=== PATIENT | female | born 1980 | race Caucasian/White ===

== ENCOUNTER → 2017-11-11 15:13 | Outpatient (REF) | payer MEDICAID, SELFPAY ==
[2017-11-11 19:04] LABS: Basophils # 0.1 K/mm3 (0-0.2); Basophils % 0.5 % (0.1-2.0); Eosinophils # 0.1 K/mm3 (0.0-0.4); Eosinophils % 0.7 % (0.1-12.0); Hematocrit 45.8 % (37.0-47.0); Lymphocytes # 2.6 K/mm3 (0.7-4.5); Lymphocytes % 28.5 K/mm3 (10-50); Mean Corpuscular HGB Conc 32.6 g/dL (31.8-35.4); Mean Corpuscular Hemoglobin 31.3 pg (27.0-31.2); Mean Corpuscular Volume 95.8 fl (81-99); Mean Platelet Volume 8.7 fl (7.4-10.4); Monocytes # 0.3 K/mm3 (0.1-1.0); Monocytes % 3.3 % (1.7-9.3); Neutrophils # 6.1 K/mm3 (1.8-7.8); Neutrophils % 66.9 % (37.0-80.0); Platelet Count 223 K/mm3 (142-424); Red Blood Count 4.79 M/mm3 (4.20-5.40); Red Cell Distribution Width 13.1 % (11.5-17.5); White Blood Count 9.1 K/mm3 (4.8-10.8)
[2017-11-11 19:58] LABS: Erythrocyte Sedimentation Rate 13 mm/hr (0-20)
[2017-11-11 20:11] LABS: Alanine Aminotransferase 26 U/L (12-78); Albumin Level 3.8 gm/dL (3.4-5.0); Albumin/Globulin Ratio 1.1 (1.1-1.8); Alkaline Phosphatase 104 U/L (46-116); Anion Gap 15.6 mEq/L (5-15); Aspartate Amino Transferase 16 U/L (15-37); Bilirubin,Total 0.5 mg/dL (0.2-1.0); C-Reactive Protein 0.4 mg/L (0.0-0.9); Calcium 8.7 mg/dL (8.5-10.1); Carbon Dioxide 27 mmol/L (21.0-32.0); Chloride 103 mmol/L (98-107); Creatinine,Serum 0.82 mg/dL (0.55-1.02); Estimated Glomerular Filt Rate 78 ml/min (>60); GFR (African American) 95 ML/MIN (>60); Globulin 3.4 gm/dl (1.3-3.2); Glucose 96 mg/dL (74-106); Potassium 3.6 mmoL/L (3.5-5.1); Sodium 142 mmol/L (136-145); Total Protein,Serum 7.2 gm/dL (6.4-8.2); Uric Acid 3.8 mg/dL (2.6-7.2)
[2017-11-11 20:40] LABS: Blood Urea Nitrogen 8 mg/dL (7-18)
== END ==
LOC: LAB 15:13
PROVIDERS: Visit Provider Physician Assistant
DX: M79.674 Pain in right toe(s) (principal)
CPT/HCPCS: 80053; 84550; 85025; 85651; 86140

== ENCOUNTER → 2017-12-01 09:20 | Outpatient (CLI) | payer MEDICAID, SELFPAY ==
--- NOTE | 2017-12-01 09:21 | XR_ITS ---
XR foot wt bearing LT 3V CLINICAL INDICATION: Left foot pain ORDERING PHYSICIAN: Ana Sanchez DPM PATIENT AGE: 37 years COMPARISON: None FINDINGS: Normal alignment. No fracture or dislocation. No significant degenerative change. There is a small calcaneal spur measuring 5 mm. IMPRESSION: Small calcaneal spur otherwise negative left foot
--- NOTE | 2017-12-01 09:21 | XR_ITS ---
XR foot wt bearing RT 3V CLINICAL INDICATION: ORDERING PHYSICIAN: Ana Sanchez DPM PATIENT AGE: 37 years COMPARISON: None FINDINGS: Normal alignment. No fracture or dislocation. No significant degenerative change. There is a small calcaneal spur measuring 3 mm. IMPRESSION: Small calcaneal spur otherwise negative right foot
== END ==
PROVIDERS: Visit Provider Podiatrist
DX: M79.671 Pain in right foot (principal)
CPT/HCPCS: 73630

== ENCOUNTER → 2018-07-07 13:18 | Outpatient (CLI) | payer MEDICAID, SELFPAY ==
--- NOTE | 2018-07-07 13:21 | CA_ITS ---
PROCEDURE: 2-D M-mode and color Doppler study INDICATIONS FOR THE TEST: Chest pain COPD Heart Murmur Tobacco Smoking Palpitations Fatigue Syncope Edema Hypertension Diabetes Mellitus Rheumatic Fever SOB BOURNE Obesity Hyperlipidemia Family History HD Additional History PATIENT INFORMATION HEIGHT:65 WEIGHT:180 GENDER: Female B/P:120/70 2-D/M-MODE INTERPRETATION: 2-D MEASUREMENTS OBSERVED VALUES IN CMS Right Ventricular Dimension (RVDd) 1.8 Interventricular Septum (Thickness)(IVsd) 1.0 Left Ventricular Internal Dimensions(LVIDd) 4.5 Left Ventricular Posterior Wall (Thickness)(LVPWd) 1.0 Aortic Root 2.9 Aortic Cusp Separation 2.0 Left Atrial Dimensions (LAD) 3.6 2D 1. Left atrium is normal size, left ventricle is normal size, there is no concentric left ventricular hypertrophy, visually estimated ejection fraction 55% with no regional wall motion abnormality. 2. The right atrium and right ventricle are normal size and contractility. 3. The aortic, mitral and tricuspid valvular grossly normal. 4. The pulmonic valve is poorly present. 5. No significant pericardial effusion noted. DOPPLER INTERROGATION: Doppler interrogation of the aortic, mitral and tricuspid valvular presence of mild mitral and tricuspid regurgitation, tricuspid and enteric velocity insufficient for calculation of the right ventricular systolic pressure, diastolic parameters are within normal range. CONCLUSION: 1. Normal left ventricular size, preserved left ventricular systolic function, visually estimated ejection fraction 55% vomiting, diastolic parameters are within normal range. 2. Mild mitral and tricuspid regurgitation 3. No significant Pericardial effusion noted.
== END ==
PROVIDERS: PCP Physician Assistant; Visit Provider Internal Medicine
DX: R07.89 Other chest pain (principal); R06.09 Other forms of dyspnea; M48.00 Spinal stenosis, site unspecified; F17.200 Nicotine dependence, unspecified, uncomplicated; Z82.49 Family history of ischemic heart disease and other diseases of the circulatory system
CPT/HCPCS: 93017; 93306

== ENCOUNTER → 2018-10-09 09:04 | Outpatient (CLI) | payer MEDICAID, SELFPAY ==
--- NOTE | 2018-10-09 09:05 | FL_ITS ---
EXAM: Barium swallow/esophagram. INDICATION: ITS.REASON: Dysphagia, ORDERING PHYSICIAN: MONY Pina PATIENT AGE: 38 years COMPARISON: None TECHNIQUE: In the upright position the patient was observed to swallow barium in both the AP and lateral view. The cervical esophagus was examined under fluoroscopy with images obtained. The patient was then placed prone in the right anterior oblique position and was observed to swallow barium with Valsalva technique . FLUOROSCOPY TIME: 54 seconds FINDINGS: There was no evidence of aspiration. There was normal peristalsis. There is a small persistent filling defect in the anterior aspect of the esophagus at the C4 level suspicious for a small esophageal web. This does not restrict flow contrast. No other significant anomalies evident. No evidence of hernia. IMPRESSION: Small anterior esophageal web at the C4 area otherwise negative barium swallow
== END ==
PROVIDERS: PCP Physician Assistant; Visit Provider Physician Assistant
DX: R13.10 Dysphagia, unspecified (principal)
CPT/HCPCS: 74220

== ENCOUNTER → 2019-01-12 10:54 | Outpatient (POV) | payer MEDICAID, SELFPAY | PROVIDERS: Visit Provider Otolaryngology | DX: Z00.00 Encounter for general adult medical examination without abnormal findings (principal) ==

== ENCOUNTER → 2020-06-19 17:38 | Outpatient (CLI) | payer OTHER, SELFPAY ==
[2020-06-19 17:56] LABS: Basophils # 0.1 K/mm3 (0-0.2); Basophils % 0.7 % (0.1-2.0); Eosinophils # 0.1 K/mm3 (0.0-0.4); Eosinophils % 0.8 % (0.1-12.0); Hematocrit 48.9 % (37.0-47.0); Hemoglobin 16.5 g/dL (12.2-16.2); Lymphocytes # 2.9 K/mm3 (0.7-4.5); Lymphocytes % 35.4 % (10-50); Mean Corpuscular HGB Conc 33.7 g/dL (31.8-35.4); Mean Corpuscular Hemoglobin 32.5 pg (27.0-31.2); Mean Corpuscular Volume 96.3 fl (81-99); Mean Platelet Volume 8.6 fl (7.4-10.4); Monocytes # 0.3 K/mm3 (0.1-1.0); Monocytes % 3.3 % (1.7-9.3); Neutrophils # 4.9 K/mm3 (1.8-7.8); Neutrophils % 59.8 % (37.0-80.0); Platelet Count 242 K/mm3 (142-424); Red Blood Count 5.07 M/mm3 (4.20-5.40); Red Cell Distribution Width 13.6 % (11.5-17.5); White Blood Count 8.2 K/mm3 (4.8-10.8)
[2020-06-19 18:07] LABS: Alanine Aminotransferase 20 U/L (12-78); Albumin Level 4.6 g/dl (3.5-5.0); Albumin/Globulin Ratio 1.5 (1.1-1.8); Alkaline Phosphatase 97 U/L (38-126); Anion Gap 11.1 mEq/L (5-15); Aspartate Amino Transferase 28 U/L (14-36); Bilirubin,Total 0.5 mg/dl (0.2-1.3); Blood Urea Nitrogen 7 mg/dl (7-17); Calcium 9.8 mg/dl (8.4-10.2); Carbon Dioxide 26 mmol/L (22.0-30.0); Chloride 105 mmol/L (98-107); Chol/HDL Ratio 4.5 (1-3.5); Cholesterol 213 mg/dl (140-200); Estimated Glomerular Filt Rate 79 ml/min (>60); GFR (African American) 96 ML/MIN (>60); Glucose 100 mg/dl (74-100); HDL Cholesterol 47 mg/dl (40-60); Potassium 4.1 mmoL/L (3.5-5.1); Sodium 138 mmol/L (136-145); Total Protein,Serum 7.6 g/dl (6.3-8.2); Triglycerides 138 mg/dl (30-150); VLDL Cholesterol 28 mg/dL (0-40)
[2020-06-19 18:18] LABS: Direct LDL Cholesterol 140.08 mg/dL (100-129)
[2020-06-19 18:23] LABS: 25-OH Vitamin D, Total 40.6 ng/mL (30-100)
[2020-06-19 18:24] LABS: T4 (Thyroxine) 10.7 ug/dl (5.53-11.0)
[2020-06-19 18:38] LABS: Thyroid Stimulating Hormone 0.95 uIU/mL (0.465-4.68)
[2020-06-19 18:56] LABS: Vitamin B12 304 pg/mL (239-931)
== END ==
PROVIDERS: Visit Provider Physician Assistant
DX: R53.83 Other fatigue (principal)
CPT/HCPCS: 80053; 80061; 82306; 82607; 84436; 84443; 85025

== ENCOUNTER → 2020-09-12 10:22 | Outpatient (CLI) | payer OTHER, SELFPAY ==
[2020-09-12 11:00] LABS: Basophils % 0.7 % (0.1-2.0); Eosinophils % 0.7 % (0.1-12.0); Hematocrit 44.9 % (37.0-47.0); Hemoglobin 15.2 g/dL (12.2-16.2); Lymphocytes % 31.6 % (10-50); Mean Corpuscular HGB Conc 33.8 g/dL (31.8-35.4); Mean Corpuscular Hemoglobin 31.9 pg (27.0-31.2); Mean Corpuscular Volume 94.2 fl (81-99); Monocytes # 0.3 K/mm3 (0.1-1.0); Neutrophils # 3.9 K/mm3 (1.8-7.8); Platelet Count 248 K/mm3 (142-424); Red Blood Count 4.77 M/mm3 (4.20-5.40); Red Cell Distribution Width 13.9 % (11.5-17.5); White Blood Count 6.3 K/mm3 (4.8-10.8)
[2020-09-12 11:25] LABS: Chloride 107 mmol/L (98-107); Potassium 4.5 mmoL/L (3.5-5.1); Sodium 137 mmol/L (136-145)
[2020-09-12 11:27] LABS: Alanine Aminotransferase 17 U/L (12-78); Aspartate Amino Transferase 21 U/L (14-36); Blood Urea Nitrogen 9 mg/dl (7-17); Estimated Glomerular Filt Rate 79 ml/min (>60); GFR (African American) 96 ML/MIN (>60)
[2020-09-12 11:28] LABS: Albumin/Globulin Ratio 1.4 (1.1-1.8); Alkaline Phosphatase 88 U/L (38-126); Anion Gap 8.5 mEq/L (5-15); Bilirubin,Total 0.3 mg/dl (0.2-1.3); Calcium 9.1 mg/dl (8.4-10.2); Carbon Dioxide 26 mmol/L (22.0-30.0); Cholesterol 171 mg/dl (140-200); Globulin 2.9 g/dL (1.3-3.2); Glucose 101 mg/dl (74-100); HDL Cholesterol 43 mg/dl (40-60); Total Protein,Serum 6.9 g/dl (6.3-8.2); Triglycerides 107 mg/dl (30-150); VLDL Cholesterol 21 mg/dL (0-40)
[2020-09-12 11:48] LABS: Direct LDL Cholesterol 107.52 mg/dL (100-129)
[2020-09-12 11:54] LABS: Free Thyroxine Index 2.9 ug/dL (5.93-13.13); T4 (Thyroxine) 9.1 ug/dl (5.53-11.0); Triiodothryronine (T3) Uptake 32 % (23.5-40.5)
[2020-09-12 12:08] LABS: Thyroid Stimulating Hormone 0.84 uIU/mL (0.465-4.68)
[2020-09-12 17:14] LABS: Microscopic, Urine URINE MICROSCOPIC (MICROSCOPIC)
[2020-09-12 19:09] LABS: Appearance,Urine CLEAR (Clear); Bilirubin,Urine Negative (Negative); Blood, Urine Negative (Negative); Color,Urine YELLOW (Yellow); Glucose,Urine (UA) Negative (Negative); Ketones,Urine TRACE (Negative); Leukocyte Esterase,Urine Negative (Negative); Nitrate,Urine Negative (Negative); PH,Urine 6.5 (5.0-8.5); Protein,Urine Negative (Negative); Specific Gravity, Urine 1.025 (1.005-1.030); Urobilinogen,Urine 0.2 EU/dl (0.2)
[2020-09-12 19:39] LABS: Bacteria,Urine 1+ /lpf; RBC,Urine Occasional #/hpf (0-3)
[2020-09-13 10:27] LABS: Estradiol 33.8 pg/mL (.); FSH 14.5 mIU/mL (.); LH 16.4 mIU/mL (.)
== END ==
PROVIDERS: Visit Provider Nurse Practitioner Obstetrics & Gynecology
DX: Z01.419 Encounter for gynecological examination (general) (routine) without abnormal findings (principal); R53.82 Chronic fatigue, unspecified
CPT/HCPCS: 36415; 80053; 80061; 81001; 82670; 83001; 83002; 84436; 84443; 84479; 85025

== ENCOUNTER → 2020-10-18 14:00 | Outpatient (CLI) | payer OTHER, SELFPAY ==
[2020-10-19 09:59] LABS: Covid-19 Nasal PCR Sendout P&C Negative
== END ==
PROVIDERS: PCP Physician Assistant; Visit Provider Physician Assistant
DX: Z20.822 Contact with and (suspected) exposure to COVID-19 (principal)
CPT/HCPCS: U0004

== ENCOUNTER → 2021-02-07 10:53 | Outpatient (CLI) | payer OTHER, SELFPAY ==
[2021-02-07 11:37] LABS: Basophils # 0.1 K/mm3 (0-0.2); Eosinophils # 0.1 K/mm3 (0.0-0.4); Hematocrit 45.8 % (37.0-47.0); Hemoglobin 14.9 g/dL (12.2-16.2); Lymphocytes # 2.7 K/mm3 (0.7-4.5); Mean Corpuscular HGB Conc 32.5 g/dL (31.8-35.4); Mean Corpuscular Hemoglobin 30.8 pg (27.0-31.2); Mean Corpuscular Volume 94.8 fl (81-99); Mean Platelet Volume 7.9 fl (7.4-10.4); Monocytes # 0.4 K/mm3 (0.1-1.0); Monocytes % 5.7 % (1.7-9.3); Neutrophils # 3.9 K/mm3 (1.8-7.8); Neutrophils % 54.3 % (37.0-80.0); Platelet Count 278 K/mm3 (142-424); Red Blood Count 4.84 M/mm3 (4.20-5.40); Red Cell Distribution Width 13.4 % (11.5-17.5); White Blood Count 7.2 K/mm3 (4.8-10.8)
[2021-02-07 11:42] LABS: Urine Pregnancy, HCG Qual. Negative (Negative)
[2021-02-07 12:36] LABS: Blood Urea Nitrogen 8 mg/dl (7-17); Calcium 9.7 mg/dl (8.4-10.2); Carbon Dioxide 26 mmol/L (22.0-30.0); Chloride 106 mmol/L (98-107); Estimated Glomerular Filt Rate 61 ml/min (>60); GFR (African American) 74 ML/MIN (>60); Glucose 89 mg/dl (74-100); Sodium 139 mmol/L (136-145)
== END ==
PROVIDERS: Visit Provider Surgery
DX: L02.214 Cutaneous abscess of groin (principal); L02.818 Cutaneous abscess of other sites; Z11.52 Encounter for screening for COVID-19
CPT/HCPCS: 36415; 80048; 81025; 85025; U0003

== ENCOUNTER 2021-02-09 10:08 | Day surgery (SDC) | payer OTHER, SELFPAY ==
[2021-02-07 13:47] VITALS: BMI 34.1
[2021-02-09] VITALS (9 sets, daily range): BP systolic 103–121; BP diastolic 65–82; PULSE 60–93; RESP 14–18; TEMP 36.2–36.7; O2SAT 92–99
--- NOTE | 2021-02-09 11:14 | HMH.ANESCL ---
[facility] Anesthesia Checklist - Patient Identification Patient Identification: Arm Band - Structural Data Admitted From: Home Planned Operative Procedure/s: I&D Left Groin Abscess Consent for Planned Operative Procedure(s) Verified: Yes Verified Documents: Surgical Consent, History and Physical - NPO Status Verified Time NPO: 00:00 - Additional verifications Anesthesia Reactions: No Hx Blood Transfusions: No Blood Transfusion Reaction: No - Airway Assessment C-Spine Mobility Assessed: Yes (mp2) TMJ Mobility Assessed: Yes Dentition: Good Dentition - Neurological Assessment Level of Consciousness: Awake, Alert - Anesthesia Plan Anesthesia Risk discussed: Yes Anesthesia Plan: Verified ASA Class: II Anesthesia Type: General [facility] History I have reviewed the patient's past medical history: Yes Medical History: Reports:: Gastroesophageal Reflux Disease(GERD), Migraine Denies:: Asthma, Cancer, Chronic Obstructive Pulmonary Disease (COPD), Diabetes Mellitus Type 1, Diabetes Mellitus Type 2, Hyperlipidemia, Hypertension, Internal Pacemaker, Lung Disease, MRSA, Seizures *Have you ever received a pneumonia vaccine?: No *Have you received a flu vaccine this season?: Yes Other Medical History: Reports: Other. Denies: Blood Transfusion Reaction, Hypothyroidism, Sinus Problems, Thyroid Disease Anesthesia experience/problems:: nac Laterality Cases: Bilateral: Tonsillectomy Other Surgeries: Yes: Cholecystectomy, EGD, Tubal Ligation. No: Pacemaker Amputation: No Fractures: No - *Social History Last grade of school completed: GED Smoking Status: Current every day smoker Tobacco Type: cigarettes # Packs/Day (cigarettes): 1 Alcohol Intake: never Alcohol Intake Frequency:: other Substance Use Type: denies use *Occupational Status:: unemployed Housing: house Household Members: spouse *Travel in the last 8 weeks: None Family Hx:: Heart Attack, Hyperlipidemia, Hypertension, Diabetes
--- NOTE | 2021-02-09 12:03 | HMH.OPNOTE ---
Date of procedure: 02/09/21 Pre-op Diagnosis:: Left medial thigh/groin abscessed cyst Post-op Diagnosis:: Same Procedure performed:: Incision and drainage of left medial thigh/groin abscess with cyst excision Surgeon:: Oswald Ruelas MD Anesthesia: LMA Estimated blood loss (mL): 10 Operative findings:: Lobulated abscessed cyst Operative note:: After informed consent was obtained the patient was taken to the operating room and placed in the supine position. General anesthesia was induced and her right medial thigh/groin was prepped and draped in a sterile fashion. After infiltration local anesthetic an elliptical incision was made around the central portion of the lesion. An area of central fluctuance was drained. The surrounding cystic tissue was then excised utilizing electrocautery. The tissue was passed off for pathologic evaluation. The wound was packed with moistened 4 x 4 gauze. The entire region including gauze was infiltrated with 1% lidocaine and dressings were applied. Patient was transferred to recovery in stable condition. Condition: stable Disposition: PACU Specimens:: Abscessed cyst Complications:: No immediate
--- NOTE | 2021-02-09 12:08 | HMH.ANESI ---
[facility] Anesthesia Record Part I Intake, IV Amount: 800 Estimated blood loss (mL): 0 Urine output (mL): 0 Blood Pressure: 121/82 SaO2: 92 Pulse Rate: 80 Respiratory Rate: 14 Temperature: 98.1 F Patient is:: Drowsy Stable to PACU at:: 12:07
[2021-02-13 07:38] VITALS: BP 116/69; PULSE 78; TEMP 36.7
--- NOTE | 2021-02-13 07:38 | P.PN_ITS ---
[facility] Anesthesia Record Part II Discharge Time: 12:37 Destination: Surgical Day Care (OP Surgery) PACU nurse assessment reviewed?: Yes Patient Condition:: Good Anesthesia Complications:: None Swallowing reflex intact?: Yes Cyanosis?: No Blood Pressure: 116/69 Pulse Rate: 78 Temperature: 98.1 F Mental Status: Alert & Oriented Pain level:: 0 Nausea and/or vomitting:: None Intake, IV Amount: 0
== END 2021-02-09 13:15 | disposition home or self-care (01) ==
LOC: OR 10:09
PROVIDERS: PCP Physician Assistant; Visit Provider Surgery
PROC: (CPT 10061; principal; 2021-02-09 11:45)
DX: L72.0 Epidermal cyst (principal); G43.909 Migraine, unspecified, not intractable, without status migrainosus; K21.9 Gastro-esophageal reflux disease without esophagitis; E03.9 Hypothyroidism, unspecified; Z90.49 Acquired absence of other specified parts of digestive tract; Z72.0 Tobacco use; Z82.3 Family history of stroke; Z82.49 Family history of ischemic heart disease and other diseases of the circulatory system; Z83.438 Family history of other disorder of lipoprotein metabolism and other lipidemia; Z83.3 Family history of diabetes mellitus; Z88.6 Allergy status to analgesic agent; Z79.899 Other long term (current) drug therapy
CPT/HCPCS: 10061; J2405

== ENCOUNTER → 2021-05-21 15:19 | Outpatient (CLI) | payer OTHER, SELFPAY | PROVIDERS: Visit Provider Physician Assistant | DX: Z20.822 Contact with and (suspected) exposure to COVID-19 (principal) | CPT/HCPCS: U0003 ==

== ENCOUNTER → 2022-03-25 14:19 | Outpatient (CLI) | payer OTHER, SELFPAY ==
[2022-03-25 13:23] LABS: Basophils # 0.2 K/mm3 (0-0.2); Eosinophils # 0.1 K/mm3 (0.0-0.4); Eosinophils % 1.1 % (0.1-12.0); Hematocrit 46.4 % (37.0-47.0); Hemoglobin 14.9 g/dL (12.2-16.2); Lymphocytes # 2.4 K/mm3 (0.7-4.5); Mean Corpuscular Hemoglobin 32.1 pg (27.0-31.2); Mean Corpuscular Volume 100.2 fl (81-99); Mean Platelet Volume 9.3 fl (7.4-10.4); Monocytes # 0.3 K/mm3 (0.1-1.0); Monocytes % 4.2 % (1.7-9.3); Neutrophils # 4.7 K/mm3 (1.8-7.8); Neutrophils % 61.7 % (37.0-80.0); Platelet Count 223 K/mm3 (142-424); Red Blood Count 4.63 M/mm3 (4.20-5.40); Red Cell Distribution Width 13.6 % (11.5-17.5); White Blood Count 7.6 K/mm3 (4.8-10.8)
[2022-03-25 13:29] LABS: Alanine Aminotransferase 23 U/L (12-78); Albumin Level 4.1 g/dl (3.5-5.0); Albumin/Globulin Ratio 1.5 (1.1-1.8); Alkaline Phosphatase 97 U/L (38-126); Anion Gap 11.5 mEq/L (5-15); Aspartate Amino Transferase 26 U/L (14-36); Bilirubin,Total 0.1 mg/dl (0.2-1.3); Blood Urea Nitrogen 12 mg/dl (7-17); Calcium 9.5 mg/dl (8.4-10.2); Carbon Dioxide 28 mmol/L (22.0-30.0); Chloride 104 mmol/L (98-107); Chol/HDL Ratio 4.4 (1-3.5); Cholesterol 197 mg/dl (140-200); Estimated Glomerular Filt Rate 79 ml/min (>60); GFR (African American) 95 ML/MIN (>60); Globulin 2.8 g/dL (1.3-3.2); Glucose 85 mg/dl (74-100); HDL Cholesterol 45 mg/dl (40-60); Potassium 4.5 mmoL/L (3.5-5.1); Sodium 139 mmol/L (136-145); Total Protein,Serum 6.9 g/dl (6.3-8.2); Triglycerides 150 mg/dl (30-150); VLDL Cholesterol 30 mg/dL (0-40)
[2022-03-25 13:39] LABS: Direct LDL Cholesterol 110.72 mg/dL (100-129)
[2022-03-25 13:44] LABS: 25-OH Vitamin D, Total 31.4 ng/mL (30-100)
[2022-03-25 14:00] LABS: Thyroid Stimulating Hormone 1.14 uIU/mL (0.465-4.68)
[2022-03-25 14:21] LABS: Vitamin B12 > 1000 pg/mL (239-931)
== END ==
PROVIDERS: PCP Physician Assistant; Visit Provider Physician Assistant
DX: Z00.00 Encounter for general adult medical examination without abnormal findings (principal); E53.8 Deficiency of other specified B group vitamins; E66.9 Obesity, unspecified; Z68.36 Body mass index [BMI] 36.0-36.9, adult; Z79.899 Other long term (current) drug therapy
CPT/HCPCS: 80053; 80061; 82306; 82607; 84443; 85025

== ENCOUNTER → 2022-04-04 10:56 | Outpatient (CLI) | payer OTHER, SELFPAY ==
--- NOTE | 2022-04-04 10:56 | MM_ITS ---
PROCEDURE INFORMATION: Exam: MG Bilateral Screening 3D Mammography Exam date and time: 04/04/2022 11:00 AM Age: 42 years old Clinical indication: Screening mammogram. TECHNIQUE: Imaging protocol: Bilateral Screening tomosynthesis and 2D mammography including computer-aided detection (CAD) when performed. COMPARISON: 1. MG DMDB DIG MAMM-DX TRISTON 07/31/2016 1:24 PM 2. BR US BREAST-RT COMPLETE W/AXILLA 07/31/2016 2:25 PM FINDINGS: MAMMOGRAPHY: Breast composition: There are scattered areas of fibroglandular density. Mass: None. Architectural distortion: No new or suspicious architectural distortion. Calcifications: No new or suspicious calcifications are present Asymmetric density: No new or suspicious asymmetric density is present Skin thickening: None. Axillary adenopathy: None. IMPRESSION: No mammographic evidence of malignancy. Recommend annual screening mammography unless otherwise clinically indicated. ASSESSMENT: BI-RADS category 1: Negative
--- NOTE | 2022-04-04 12:57 | MR_ITS ---
FINAL REPORT CLINICAL HISTORY: LBP with pain radiating down LLE intermittent mid back pain with burning pain down back of legs down to knee x 2 months COMPARISON: March 28, 2017 FINDINGS: Multiplanar MR imaging of the lumbar spine was performed without contrast. On the sagittal T2-weighted images, disc degeneration is seen at several levels. The vertebral alignment is normal. There is no evidence of fracture. No bony mass is identified. The conus has an unremarkable appearance. No significant canal stenosis is identified. L1-2: An annular bulge is present. There is no significant canal stenosis or neural foraminal narrowing. L2-3: An annular bulge is present. There is no significant canal stenosis or neural foraminal narrowing. L3-4: An annular bulge is present. There is mild left neural foraminal narrowing. L4-5: An annular bulge and facet arthropathy are present. There is a new 6 mm synovial cyst posterior to the facet joint on the left. There is mild bilateral neural foraminal narrowing. L5-S1: Facet arthropathy is present. There is no significant canal stenosis or neural foraminal narrowing. IMPRESSION: Multilevel degenerative disc disease with areas of neural foraminal narrowing. Synovial cyst posterior to the facet joint on the left at L4-L5, new from prior. No focal disc protrusion or significant central canal stenosis. Reviewed, Interpreted and Dictated by Navid Castellanos III, MD Transcribed by Calos Sterling Authenticated and . [facility]
== END ==
PROVIDERS: PCP Physician Assistant; Visit Provider Physician Assistant
DX: Z12.31 Encounter for screening mammogram for malignant neoplasm of breast (principal); M54.50 Low back pain, unspecified; M79.605 Pain in left leg
CPT/HCPCS: 72148; 76376; 77063; 77067

== ENCOUNTER → 2023-09-03 16:07 | Outpatient (CLI) | payer OTHER, SELFPAY ==
--- NOTE | 2023-09-03 16:14 | MM_ITS ---
PROCEDURE INFORMATION: Exam: MG Bilateral Screening 3D Mammography Exam date and time: 09/03/2023 4:14 PM Age: 43 years old Clinical indication: Screening. Paternal grandmother and paternal great aunt had breast cancer. TECHNIQUE: Imaging protocol: Bilateral Screening tomosynthesis and 2D mammography including computer-aided detection (CAD) when performed. COMPARISON: 1. MG MM DIG SCREENING MAMM BI W/CAD 04/04/2022 11:00 AM 2. MG DMDB DIG MAMM-DX TRISTON 07/31/2016 1:24 PM 3. BR US BREAST-RT COMPLETE W/AXILLA 07/31/2016 2:25 PM FINDINGS: MAMMOGRAPHY: Breast composition: The breasts are almost entirely fatty. Mass: None. Architectural distortion: None. Calcifications: No suspicious calcifications. Asymmetric density: None. Skin thickening: None. Axillary adenopathy: None. IMPRESSION: No mammographic evidence of malignancy. Annual screening is recommended unless otherwise clinically indicated. ASSESSMENT: BI-RADS Category 1: Negative
== END ==
PROVIDERS: PCP Physician Assistant; Visit Provider Physician Assistant
DX: Z12.31 Encounter for screening mammogram for malignant neoplasm of breast (principal)
CPT/HCPCS: 77063; 77067

== ENCOUNTER 2023-11-18 08:04 | Day surgery (SDC) | payer OTHER, SELFPAY ==
[2023-11-17 10:51] VITALS: BMI 34.6
[2023-11-18] VITALS (7 sets, daily range): BP systolic 111–152; BP diastolic 72–96; PULSE 74–95; RESP 16–17; TEMP 36.3; O2SAT 93–97
[2023-11-18] MEDS: LACTATED RINGERS 1000ML 1,000 ML 25 ML IV (08:26)
--- NOTE | 2023-11-18 08:33 | HMH.SCOPE ---
Procedure: Date: 11/18/23 Patient Date of :: 1980 Procedure Performed:: Colonoscopy with polypectomy Indications:: Family history of colon cancer (sister diagnosed at approximately 40 years of age) Performing Provider:: Oswald Ruelas MD Referring Provider:: . Sedation:: Monitored anesthesia care Procedure:: After informed consent was obtained the patient was taken to the endoscopy suite. Sedation ensued after the patient was transferred to the left lateral decubitus position. Pulse, blood pressure, and oxygen saturation were monitored throughout the procedure. Digital rectal exam revealed no significant abnormality. The colonoscope was placed in position. The entire colon was evaluated. The colonoscope was carefully removed and the patient was transferred to recovery in stable condition. Please see findings and specimens below for detail. Findings:: Bowel preparation fair Significant spasticity Moderate tortuosity Scattered/isolated sigmoid diverticuli Mild hemorrhoidal tags/cushions Polyp at 45 cm Specimens:: Polyp at 45 cm (cold snare) Recommendations:: Timing of repeat colonoscopy is pending pathology will likely be around 2-3 years secondary to family history of colon cancer, tortuosity, and spasticity. Complications:: No immediate Estimated blood obtained (mL): 1 Colonoscopy Component Colonoscopy Component Was a colonoscopy performed during today's procedure?: Yes Recommended follow up colonoscopy of at least 10 years?: No If no, follow up colonoscopy recommended in ___ years?: (See above) Reason for not recommending >/= 10 yr follow-up interval?: (See above)
--- NOTE | 2023-11-18 08:34 | P.PNANES_ITS ---
[facility] Disclaimer: The information contained in this section may have been updated after the patient was seen, as this information can be updated by other users. Medical History Bilateral foot pain Family history of ischemic heart disease before age 50 Neuropathy Right sciatic nerve pain Sciatica Sciatica of right side Spinal stenosis Tobacco dependence syndrome Urinary Incontinence Surgical History History of bilateral tubal ligation History of cholecystectomy History of removal of cyst Family History Sister Colon cancer Grandmother Breast cancer Social History Smoking Status: Current every day smoker tobacco type: cigarettes packs per day: 1 alcohol intake: never substance use type: denies use current occupational status: unemployed Travel in the last 8 weeks: None household members: spouse housing: house current occupational exposures/hazards: No caffeine: Yes [facility] Anesthesia Checklist Patient Identification Patient Identification: Arm Band Structural Data Admitted From: Home Planned Operative Procedure/s: Colonoscopy Consent for Planned Operative Procedure(s) Verified: Yes Verified Documents: Surgical Consent and History and Physical NPO Status Verified Time NPO: 00:00 Additional verifications Anesthesia Reactions: No Hx Blood Transfusions: No Blood Transfusion Reaction: No Airway Assessment Mallampati Score:: Class II C-Spine Mobility Assessed: Yes TMJ Mobility Assessed: Yes Dentition: Good Dentition Neurological Assessment Level of Consciousness: Awake and Alert Anesthesia Plan Anesthesia Risk discussed: Yes Anesthesia Plan: Verified ASA Class: II Anesthesia Type: MAC
--- NOTE | 2023-11-18 09:19 | P.PNANES_ITS ---
[facility] Anesthesia Record Part I Anesthesia Record I Intake, IV Amount: 250 Hydration: Adequate Estimated blood loss (mL): 1 Urine output (mL): 0 Blood Products used (#): none Blood Pressure: 120/72 SaO2: 93 Pulse Rate: 95 Airway Patency: Patent Respiratory Rate: 16 Temperature: 97.3 F Patient is:: Awake (Talking) and Stable Stable to PACU at:: 09:17
== END 2023-11-18 09:42 | disposition home or self-care (01) ==
PROVIDERS: PCP Physician Assistant; Visit Provider Surgery
PROC: 0DJD8ZZ Inspection of Lower Intestinal Tract, Via Natural or Artificial Opening Endoscopic (ICD-10-PCS; CPT 45385; principal; 2023-11-18 09:30)
DX: Z12.11 Encounter for screening for malignant neoplasm of colon (principal); Z80.0 Family history of malignant neoplasm of digestive organs; K64.8 Other hemorrhoids; K64.4 Residual hemorrhoidal skin tags; K63.5 Polyp of colon
CPT/HCPCS: 45385

== ENCOUNTER 2024-03-09 09:46 | Outpatient (CLI) | payer OTHER, SELFPAY ==
[2024-03-09 18:10] LABS: Basophils # 0.1 K/mm3 (0-0.2); Basophils % 0.9 % (0.1-2.0); Eosinophils # 0.1 K/mm3 (0.0-0.4); Eosinophils % 0.9 % (0.1-12.0); Hematocrit 48.1 % (37.0-47.0); Hemoglobin 15.3 g/dL (12.2-16.2); Lymphocytes # 2.3 K/mm3 (0.7-4.5); Lymphocytes % 39.3 % (10-50); Mean Corpuscular HGB Conc 31.9 g/dL (31.8-35.4); Mean Corpuscular Hemoglobin 31.8 pg (27.0-31.2); Mean Corpuscular Volume 99.9 fl (81-99); Mean Platelet Volume 9.3 fl (7.4-10.4); Monocytes # 0.2 K/mm3 (0.1-1.0); Monocytes % 3.6 % (1.7-9.3); Neutrophils # 3.3 K/mm3 (1.8-7.8); Neutrophils % 55.3 % (37.0-80.0); Platelet Count 203 K/mm3 (142-424); Red Blood Count 4.82 M/mm3 (4.20-5.40); Red Cell Distribution Width 13.9 % (11.5-17.5); White Blood Count 5.9 K/mm3 (4.8-10.8)
[2024-03-09 18:23] LABS: Hemoglobin A1C 5.5 % (4.0-6.0)
[2024-03-09 18:26] LABS: Chloride 106 mmol/L (98-107); Potassium 4.6 mmoL/L (3.5-5.1); Sodium 138 mmol/L (136-145)
[2024-03-09 18:28] LABS: Blood Urea Nitrogen 11 mg/dl (7-17); Estimated Glomerular Filt Rate 68 ml/min (>60); GFR (African American) 82 ML/MIN (>60)
[2024-03-09 18:29] LABS: Alanine Aminotransferase 24 U/L (12-78); Albumin/Globulin Ratio 1.5 (1.1-1.8); Alkaline Phosphatase 96 U/L (38-126); Anion Gap 10.6 mEq/L (5-15); Aspartate Amino Transferase 27 U/L (14-36); Bilirubin,Total 0.3 mg/dl (0.2-1.3); Calcium 9.6 mg/dl (8.4-10.2); Carbon Dioxide 26 mmol/L (22.0-30.0); Cholesterol 208 mg/dl (140-200); Globulin 2.7 g/dL (1.3-3.2); Glucose 107 mg/dl (74-100); Iron 99 ug/dL (37-170); Total Protein,Serum 6.7 g/dl (6.3-8.2); Triglycerides 127 mg/dl (30-150); VLDL Cholesterol 25 mg/dL (0-40)
[2024-03-09 18:30] LABS: Chol/HDL Ratio 4.7 (1-3.5); HDL Cholesterol 44 mg/dl (40-60)
[2024-03-09 18:39] LABS: Total Iron Binding Capacity 352 ug/dL (265-497)
[2024-03-09 18:40] LABS: Direct LDL Cholesterol 130.98 mg/dL (100-129)
[2024-03-09 19:00] LABS: Thyroid Stimulating Hormone 0.75 uIU/mL (0.465-4.68)
[2024-03-09 20:04] LABS: Ferritin 33.4 ng/ml (6.24-137)
[2024-03-09 20:55] LABS: Vitamin B12 217 pg/mL (239-931)
== END 2024-03-09 23:59 | disposition home or self-care (01) ==
LOC: LAB.DROPOF 03-10 09:47
PROVIDERS: PCP Physician Assistant; Visit Provider Physician Assistant
DX: R53.83 Other fatigue (principal); G62.9 Polyneuropathy, unspecified; E55.9 Vitamin D deficiency, unspecified; Z68.34 Body mass index [BMI] 34.0-34.9, adult; E66.9 Obesity, unspecified
CPT/HCPCS: 80050; 80053; 80061; 82306; 82607; 82728; 83036; 83540; 83550; 84443; 85025

== ENCOUNTER 2024-10-22 11:58 | Emergency (ER) | payer OTHER, SELFPAY ==
[2024-10-22 12:55] VITALS: BP 140/94; PULSE 80; RESP 17; TEMP 36.7; O2SAT 97; BMI 33.6
--- NOTE | 2024-10-22 13:03 | EXP.UTC ---
Discharge Plan Disposition Patient Disposition: Home, Self-Care Condition: Good Prescriptions Prescriptions: New pantoprazole [Protonix] 40 mg tablet,delayed release (DR/EC) 40 mg PO DAILY Qty: 30 0RF ondansetron 4 mg tablet,disintegrating 4 mg PO QID PRN (Reason: nausea and vomiting) Qty: 10 0RF Referrals Follow up/Referrals: Laure Palumbo PA [Primary Care Provider] - See instructions Jalen Chanel II, MD [Staff Physician] - See instructions Activity Restrictions/Add. Instructions Additional Instructions/Restrictions: I have sent medication into your pharmacy. I have referred you to gastroenterology. Follow-up with your PCP for no improvement worsening signs or symptoms or return to the ER as needed. Clinical Impressions Clinical Impression: Right upper quadrant abdominal pain Instructions Patient Instructions: DI for Acute Abdominal Pain Print Language Print Language: Mongolian Discharge ED Provider: Rima Lew [facility] HPI General Chief complaint: Abdominal Pain Stated complaint: R side abd pain/5 days Time Seen by Provider: 10/22/24 13:02 Related Data Previous Rx's ?Medication ?Instructions ?Recorded ondansetron 4 mg disintegrating 4 mg PO QID PRN nausea and 10/22/24 tablet vomiting #10 tabs pantoprazole 40 mg tablet,delayed 40 mg PO DAILY #30 tabs 10/22/24 release (Protonix) Allergies Allergy/AdvReac Type Severity Reaction Status Date / Time morphine (MORPHINE) Allergy Severe S-ANAPHYLAX Verified 10/22/24 14:02 IS hydrocodone (From LORTAB) AdvReac Mild NA-NAUSEA/V Verified 10/22/24 14:02 OMITING [facility] Disclaimer: The information contained in this section may have been updated after the patient was seen, as this information can be updated by other users. Medical History Neuropathy Sciatica of right side Family history of ischemic heart disease before age 50 Tobacco dependence syndrome Spinal stenosis Sciatica Right sciatic nerve pain Bilateral foot pain Urinary Incontinence Surgical History History of removal of cyst Left Leg History of cholecystectomy History of bilateral tubal ligation Family History Sister Colon cancer Grandmother Breast cancer Social History Smoking Status: Current every day smoker tobacco type: cigarettes packs per day: 1 alcohol intake: never substance use type: denies use current occupational status: unemployed Travel in the last 8 weeks: None household members: spouse housing: house current occupational exposures/hazards: No caffeine: Yes Have you lived/traveled outside [place] in past 30 days?: No Contact w/someone who lives/traveled outside US past 30 days?: No Exposure to someone with infectious disease in past 14 days?: No Do you have a fever (greater than 100.4 F or 38 C)?: No Have you tested positive for COVID-19: No Exposed to someone with COVID-19 in past 14 days?: No Do you have a sore throat?: No Do you have a cough?: No Do you have any weakness?: No Do you have any diarrhea?: No Are you experiencing any unusual bleeding?: No Do you have any muscle aches/pain?: No Do you have any abdominal pain?: No Are you experiencing loss of taste or smell?: No ROS Obtained: Yes All systems reviewed & no additional complaints except as documented Constitutional Constitutional: Denies chills, Denies fever(s) and Reports poor appetite ENT Ears, Nose, Mouth, and Throat: Denies dizziness and Denies sore throat Cardiovascular Cardiovascular: Denies dyspnea Respiratory Respiratory: Denies chest congestion, Denies cough and Denies dyspnea Gastrointestinal Gastrointestingal: Reports as per HPI Genitourinary Female Genitourinary: Denies difficulty voiding, Denies dysuria, Denies hematuria, Denies urinary frequency, Denies urinary incontinence, Denies urinary hesitancy and Denies urinary urgency Musculoskeletal Musculoskeletal: Denies arthralgias Integumentary/Breasts Skin/Breast: Denies rash Neurologic Neurologic: Denies dizziness Physical Exam General General appearance: alert and in no apparent distress Head Head exam: atraumatic and normocephalic Eye Eye exam: Present normal appearance, PERRL and EOMI ENT ENT exam: Present normal exam, normal oropharynx, mucous membranes moist, TM's normal bilaterally and normal external ear exam Neck Neck exam: Present normal inspection, full ROM and trachea midline; Absent tenderness, meningismus or lymphadenopathy Chest Chest inspection: Present normal inspection and symmetric chest wall rise; Absent tenderness, rash or abscess Respiratory Respiratory exam: Present normal lung sounds bilaterally; Absent respiratory distress, wheezes or stridor Cardiovascular Cardiovascular exam: Present regular rate and normal rhythm; Absent irregular rhythm, systolic murmur, diastolic murmur or JVD Abdominal Exam Abdominal exam: Present soft and hyperactive bowel sounds; Absent distention, tenderness, guarding, rebound, rigidity, psoas sign, obturator sign, heel tap sign, Means's sign, Rovsing's sign or tenderness at McBurney's Point Extremities Exam Extremities exam: Present normal inspection and full ROM; Absent tenderness Back Exam Back exam: Present normal inspection and full ROM; Absent tenderness, CVA tenderness (R) or CVA tenderness (L) Neurological Exam Neurological exam: Present alert, oriented X3 and CN II-XII intact Psychiatric Psychiatric exam: Present normal affect and normal mood Skin Skin exam: Present warm, dry, intact and normal color Lymphatic Lymphatic Findings: no adenopathy Medical Decision Making Medical Records Medical records reviewed: No I reviewed the patient's medical records. Screening: Per USPSTF and CDC recommendations, given the prevalence of disease in our region, it is our hospital?s policy to screen for HIV and viral Hepatitis for all patients aged 18 and over and those with ongoing risk factors. Jose Inquiry Pt receiving controlled substance: No Lab Data 10/22/24 14:00 10/22/24 14:00
--- NOTE | 2024-10-22 13:44 | PC.NURSE ---
PATIENT SENT TO ER PER Rachel ALFORD APRN FOR FURTHER EVALUATION. REPORT GIVEN TO ER MD BY Rachel ALFORD APRN. PATIENT AMBULATED TO ER WITH [facility] STAFF AT THIS TIME. FAMILY AT BEDSIDE
[2024-10-22 13:52] VITALS: BP 149/104; PULSE 73; RESP 14; TEMP 36.8; O2SAT 99; BMI 33.6
--- NOTE | 2024-10-22 14:03 | ED_ITS ---
<Statement entered by Rima Lew DO - 10/22/24 23:01> I assumed care of the patient at 1530 at time of departure of previous provider. I was consulted by the MÓNICA, and we discussed the complexity of the problems being addressed. I approved the treatment and management plan for this patient's care in the emergency department, thus performing a substantive portion of the medical decision making. Rima Lew DO <Statement entered by Theresa Boyd MD - 10/22/24 15:55> I was consulted by the MÓNICA, and we discussed the complexity of problems being addressed. I approved the treatment and management plan for this patient's care in the emergency department, thus performing a substantive portion of the medical decision making. Theresa Boyd MD Discharge Plan Disposition Patient Disposition: Home, Self-Care Condition: Good Prescriptions Prescriptions: New pantoprazole [Protonix] 40 mg tablet,delayed release (DR/EC) 40 mg PO DAILY Qty: 30 0RF ondansetron 4 mg tablet,disintegrating 4 mg PO QID PRN (Reason: nausea and vomiting) Qty: 10 0RF Referrals Follow up/Referrals: Laure Palumbo PA [Primary Care Provider] - See instructions Jalen Chanel II, MD [Staff Physician] - See instructions Activity Restrictions/Add. Instructions Additional Instructions/Restrictions: I have sent medication into your pharmacy. I have referred you to gastroenterology. Follow-up with your PCP for no improvement worsening signs or symptoms or return to the ER as needed. Clinical Impressions Clinical Impression: Right upper quadrant abdominal pain Instructions Patient Instructions: DI for Acute Abdominal Pain Print Language Print Language: Tamazight Discharge ED Provider: Rima Lew General Adult HPI <MONY Lafleur - Last Filed: 10/22/24 21:38> General Chief complaint: Abdominal Pain Stated complaint: R side abd pain/5 days Time Seen by Provider: 10/22/24 13:02 Mode of Arrival: Ambulatory Source of Information: Patient Limitations: No Limitations Description of Symptoms (Recalled from ER Triage Doc. by RN): pt c/o R sided abd pain ongoing x5d. pt states the pain is dull and 4/10, however, she intermittantly gets sharp pains that are 8/10 and radiate accross her entire abd. pts last normal BM was 10/18. pt reports nausea and diarrhea. pt denies urinary symptoms. pt has a hx of a tubal and arline. pts LMP was 2022. History of Present Illness HPI narrative: Patient presents for evaluation of right sided abdominal pain. Patient gives 5 days history of right-sided intermittent abdominal pain however it is been constant for 5 days. It has periods of intensity along with a constant dull presents. She denies any nausea vomiting or diarrhea and is tolerant of oral intake is having normal bowel movements passing flatus. She denies any chest pain fever chills hemoptysis hematochezia melena hematemesis hematuria. Patient has had an had a cholecystectomy but still has her gallbladder. And has had a bilateral tubal ligation Related Data Previous Rx's ?Medication ?Instructions ?Recorded ondansetron 4 mg disintegrating 4 mg PO QID PRN nausea and 10/22/24 tablet vomiting #10 tabs pantoprazole 40 mg tablet,delayed 40 mg PO DAILY #30 tabs 10/22/24 release (Protonix) Allergies Allergy/AdvReac Type Severity Reaction Status Date / Time morphine (MORPHINE) Allergy Severe S-ANAPHYLAX Verified 10/22/24 14:02 IS hydrocodone (From LORTAB) AdvReac Mild NA-NAUSEA/V Verified 10/22/24 14:02 OMITING PFSH <MONY Lafleur - Last Filed: 10/22/24 21:38> PFS Disclaimer: The information contained in this section may have been updated after the patient was seen, as this information can be updated by other users. Medical History Neuropathy Sciatica of right side Family history of ischemic heart disease before age 50 Tobacco dependence syndrome Spinal stenosis Sciatica Right sciatic nerve pain Bilateral foot pain Urinary Incontinence Surgical History History of removal of cyst Left Leg History of cholecystectomy History of bilateral tubal ligation Family History Sister Colon cancer Grandmother Breast cancer Social History Smoking Status: Current every day smoker tobacco type: cigarettes packs per day: 1 alcohol intake: never substance use type: denies use current occupational status: unemployed Travel in the last 8 weeks: None household members: spouse housing: house current occupational exposures/hazards: No caffeine: Yes Have you lived/traveled outside [place] in past 30 days?: No Contact w/someone who lives/traveled outside [place] past 30 days?: No Exposure to someone with infectious disease in past 14 days?: No Do you have a fever (greater than 100.4 F or 38 C)?: No Have you tested positive for COVID-19: No Exposed to someone with COVID-19 in past 14 days?: No Do you have a sore throat?: No Do you have a cough?: No Do you have any weakness?: No Do you have any diarrhea?: No Are you experiencing any unusual bleeding?: No Do you have any muscle aches/pain?: No Do you have any abdominal pain?: No Are you experiencing loss of taste or smell?: No Other Medical History Have you received the Flu Vaccine for this season: Yes Have you received the Pneumonia Vaccine: No <MONY Lafleur - Last Filed: 10/22/24 21:38> ROS Obtained: Yes Systems reviewed as appropriate & no additional complaints except as documented Physical Exam <MONY Lafleur - Last Filed: 10/22/24 21:38> General General appearance: alert and in no apparent distress Respiratory Respiratory exam: Present normal lung sounds bilaterally Cardiovascular Cardiovascular exam: Present regular rate Neurological Exam Neurological exam: Present alert and oriented X3 Medical Decision Making <MONY Lafleur - Last Filed: 10/22/24 21:38> Medical Records Medical records reviewed: Yes I reviewed the patient's medical records. Screening: Per USPSTF and CDC recommendations, given the prevalence of disease in our region, it is our hospital?s policy to screen for HIV and viral Hepatitis for all patients aged 18 and over and those with ongoing risk factors. Vital Signs: 10/22/24 12:55 10/22/24 13:52 10/22/24 14:30 Temperature 98.1 F 98.3 F Temperature Source Oral Oral Pulse Rate 66 Pulse Rate [Left Brachial] 80 73 Respiratory Rate 17 14 Blood Pressure 144/106 H Blood Pressure [Left Arm] 140/94 H 149/104 H Blood Pressure Mean [Left Arm] 109 119 Blood Pressure Source Blood Pressure Source [Left Arm] Automatic Cuff Automatic Cuff Blood Pressure Position [Left Arm] Sitting Sitting 02 Sat by Pulse Oximetry 97 99 96 Oxygen Delivery Method Room Air Room Air 10/22/24 15:00 10/22/24 15:30 10/22/24 16:12 Temperature 98.3 F Temperature Source Oral Pulse Rate 62 55 L 62 Pulse Rate [Left Brachial] Respiratory Rate 18 Blood Pressure 135/99 H 151/100 H 148/90 H Blood Pressure [Left Arm] Blood Pressure Mean [Left Arm] Blood Pressure Source Automatic Cuff Blood Pressure Source [Left Arm] Blood Pressure Position [Left Arm] 02 Sat by Pulse Oximetry 94 L 97 Oxygen Delivery Method Room Air Room Air Lab Data Lab results reviewed: Yes I reviewed the patient's lab results. Lab Results 10/22/24 13:48: Urine Color Yellow, Urine Appearance Clear, Urine pH 6.5, Ur Specific [place] 1.010, Urine Protein Negative, Urine Glucose (UA) Negative, Urine Ketones Negative, Urine Blood Negative, Urine Nitrate Negative, Urine Bilirubin Negative, Urine Urobilinogen 0.2, Ur Leukocyte Esterase Negative, Urine RBC 3-5, Urine WBC 5-10, Ur Squamous Epith Cells 10-20, Urine Bacteria 1+ 10/22/24 14:00: WBC 7.6, RBC 4.40, Hgb 13.6, Hct 41.5, MCV 94.3, MCH 30.9, MCHC 32.8, RDW 12.9, Plt Count 210, MPV 9.8, Neut % (Auto) 54.7, Lymph % (Auto) 37.8, [place] % (Auto) 5.7, Eos % (Auto) 0.7, Baso % (Auto) 0.7, Neut # (Auto) 4.2, Lymph # (Auto) 2.9, [place] # (Auto) 0.4, Eos # (Auto) 0.1, Baso # (Auto) 0.1, Sodium 140, Potassium 4.0, Chloride 103, Carbon Dioxide 28, Anion Gap 13.0, BUN 9, Creatinine 0.90, Estimated Creat Clear 115, Estimated GFR 68, Est GFR ( Amer) 82, Glucose 89, Calcium 9.5, Magnesium 1.8, Total Bilirubin 0.4, AST 29, ALT 25, Alkaline Phosphatase 114, Total Protein 7.4, Albumin 4.5, Globulin 2.9, Albumin/Globulin Ratio 1.6, Lipase 177, Procalcitonin 0.037, HCV Ab ESTHELA w/Rflx PCR Qn Negative, HIV Ag/Ab Combo Qual Negative 10/22/24 14:00 10/22/24 14:00 Orders (Tests/Meds): ED MEDICATIONS Discontinued Medications Generic Name Dose Route Start Last Admin Trade Name Alexanderq PRN Reason Stop Dose Admin Acetaminophen 1,000 mg 10/22/24 14:04 10/22/24 14:11 Acetaminophen 500mg Tab PO 10/22/24 14:05 1,000 mg ONCE ONE Administration Iopamidol 75 ml 10/22/24 14:17 10/22/24 14:18 Iopamidol-370 (76%);100ml Bottle IV 10/22/24 14:18 75 ml ONCE ONE Administration Ketorolac Tromethamine 15 mg 10/22/24 14:04 10/22/24 14:11 Ketorolac 30mg/Ml Vial IV 10/22/24 14:05 15 mg ONCE ONE Administration Ondansetron HCl 4 mg 10/22/24 14:04 10/22/24 14:10 Ondansetron 4mg/2ml Vial IV 10/22/24 14:05 4 mg ONCE ONE Administration Pantoprazole Sodium 40 mg 10/22/24 15:32 10/22/24 15:43 Pantoprazole 40mg Tablet PO 10/22/24 15:33 40 mg ONCE ONE Administration Sodium Chloride 10 ml 10/22/24 14:17 10/22/24 14:18 Sodium Chloride 0.9% 10ml Syr (Rad Only) IV 10/22/24 14:18 10 ml ONCE ONE Administration ORDERS Category Date Time Status CT abdomen pelvis w con Stat Cat Scan 10/22/24 14:04 Completed CBC w/Auto Diff [Complete Blood Count Auto Diff] Stat Lab 10/22/24 14:00 Completed CMP [Comprehensive Metabolic Panel] Stat Lab 10/22/24 14:00 Completed HIV Combo Stat Lab 10/22/24 14:00 Completed Hepatitis C Ab Qual. W/ RFX Stat Lab 10/22/24 14:00 Completed Lipase Stat Lab 10/22/24 14:00 Completed Magnesium Stat Lab 10/22/24 14:00 Completed Procalcitonin Stat Lab 10/22/24 14:00 Completed UA [Urinalysis and Microscopic] Stat Lab 10/22/24 13:48 Completed Medical Decision Narrative: In summary patient is a 44-year-old female who presents to the emergency department for evaluation of 5 days of right-sided abdominal pain. Patient is hemodynamically stable with a blood pressure 140/94 heart rate 80 with normal sinus rhythm on the bedside monitor breathing 17 times a minute with an O2 sat of 97 upon arrival, and afebrile at 98.1. Physical exam is remarkable for mild right sided abdominal tenderness that is nonfocal but primarily in the right upper quadrant and epigastrium without rebound or guarding or rigidity. Bowel sounds normal active. Breath sounds are clear and equal bilaterally to the bases cardiovascular exam shows that she has normal heart sounds and no reproducible pain on palpation of the chest. Differential diagnosis includes gastritis versus cholecystitis versus pancreatitis versus gastroenteritis etc. Initial workup will be conducted with hematologic labs urinalysis CT scan abdomen pelvis. Initial interventions include crystalloid bolus Toradol Tylenol GI cocktail. Initial workup reviewed by me shows that her hematologic labs are significant for a normal white count with no shift stable H&H CMP that is nonactionable with normal bilirubin and normal transaminases lipase of 177 procalcitonin 0.037 urinalysis that shows it is nitrite leukocyte Estrace negative on dipstick and microscopic exam shows 3-5 reds 5-10 whites 10-20 epithelial cells 1+ bacteria not consistent with a urinary tract infection. My informal interpretation of her CT scan abdomen pelvis shows that she has a thickened pylorus and first portion of the duodenum without evidence of stranding which could be consistent with duodenitis prior to radiology read. Upon repeat evaluation patient did report mild improvement in her symptoms after initial intervention. Given this patient is appropriate for discharge with a prescription for Protonix and referral to gastroenterology for upper endoscopy and further evaluation and care. Patient given strict return precautions. Patient verbalized understanding and agreement. <Theresa Boyd MD - Last Filed: 10/22/24 15:54> Jose Inquiry Pt receiving controlled substance: No Vital Signs: 10/22/24 12:55 10/22/24 13:52 10/22/24 14:30 Temperature 98.1 F 98.3 F Temperature Source Oral Oral Pulse Rate 66 Pulse Rate [Left Brachial] 80 73 Respiratory Rate 17 14 Blood Pressure 144/106 H Blood Pressure [Left Arm] 140/94 H 149/104 H Blood Pressure Mean [Left Arm] 109 119 Blood Pressure Source Blood Pressure Source [Left Arm] Automatic Cuff Automatic Cuff Blood Pressure Position [Left Arm] Sitting Sitting 02 Sat by Pulse Oximetry 97 99 96 Oxygen Delivery Method Room Air Room Air 10/22/24 15:00 10/22/24 15:30 10/22/24 16:12 Temperature 98.3 F Temperature Source Oral Pulse Rate 62 55 L 62 Pulse Rate [Left Brachial] Respiratory Rate 18 Blood Pressure 135/99 H 151/100 H 148/90 H Blood Pressure [Left Arm] Blood Pressure Mean [Left Arm] Blood Pressure Source Automatic Cuff Blood Pressure Source [Left Arm] Blood Pressure Position [Left Arm] 02 Sat by Pulse Oximetry 94 L 97 Oxygen Delivery Method Room Air Room Air Lab Data Lab Results 10/22/24 13:48: Urine Color Yellow, Urine Appearance Clear, Urine pH 6.5, Ur Specific [place] 1.010, Urine Protein Negative, Urine Glucose (UA) Negative, Urine Ketones Negative, Urine Blood Negative, Urine Nitrate Negative, Urine Bilirubin Negative, Urine Urobilinogen 0.2, Ur Leukocyte Esterase Negative, Urine RBC 3-5, Urine WBC 5-10, Ur Squamous Epith Cells 10-20, Urine Bacteria 1+ 10/22/24 14:00: WBC 7.6, RBC 4.40, Hgb 13.6, Hct 41.5, MCV 94.3, MCH 30.9, MCHC 32.8, RDW 12.9, Plt Count 210, MPV 9.8, Neut % (Auto) 54.7, Lymph % (Auto) 37.8, [place] % (Auto) 5.7, Eos % (Auto) 0.7, Baso % (Auto) 0.7, Neut # (Auto) 4.2, Lymph # (Auto) 2.9, [place] # (Auto) 0.4, Eos # (Auto) 0.1, Baso # (Auto) 0.1, Sodium 140, Potassium 4.0, Chloride 103, Carbon Dioxide 28, Anion Gap 13.0, BUN 9, Creatinine 0.90, Estimated Creat Clear 115, Estimated GFR 68, Est GFR ( Amer) 82, Glucose 89, Calcium 9.5, Magnesium 1.8, Total Bilirubin 0.4, AST 29, ALT 25, Alkaline Phosphatase 114, Total Protein 7.4, Albumin 4.5, Globulin 2.9, Albumin/Globulin Ratio 1.6, Lipase 177, Procalcitonin 0.037, HCV Ab ESTHELA w/Rflx PCR Qn Negative, HIV Ag/Ab Combo Qual Negative Orders (Tests/Meds): ED MEDICATIONS Discontinued Medications Generic Name Dose Route Start Last Admin Trade Name [place] PRN Reason Stop Dose Admin Acetaminophen 1,000 mg 10/22/24 14:04 10/22/24 14:11 Acetaminophen 500mg Tab PO 10/22/24 14:05 1,000 mg ONCE ONE Administration Iopamidol 75 ml 10/22/24 14:17 10/22/24 14:18 Iopamidol-370 (76%);100ml Bottle IV 10/22/24 14:18 75 ml ONCE ONE Administration Ketorolac Tromethamine 15 mg 10/22/24 14:04 10/22/24 14:11 Ketorolac 30mg/Ml Vial IV 10/22/24 14:05 15 mg ONCE ONE Administration Ondansetron HCl 4 mg 10/22/24 14:04 10/22/24 14:10 Ondansetron 4mg/2ml Vial IV 10/22/24 14:05 4 mg ONCE ONE Administration Pantoprazole Sodium 40 mg 10/22/24 15:32 10/22/24 15:43 Pantoprazole 40mg Tablet PO 10/22/24 15:33 40 mg ONCE ONE Administration Sodium Chloride 10 ml 10/22/24 14:17 10/22/24 14:18 Sodium Chloride 0.9% 10ml Syr (Rad Only) IV 10/22/24 14:18 10 ml ONCE ONE Administration ORDERS Category Date Time Status CT abdomen pelvis w con Stat Cat Scan 10/22/24 14:04 Completed CBC w/Auto Diff [Complete Blood Count Auto Diff] Stat Lab 10/22/24 14:00 Completed CMP [Comprehensive Metabolic Panel] Stat Lab 10/22/24 14:00 Completed HIV Combo Stat Lab 10/22/24 14:00 Completed Hepatitis C Ab Qual. W/ RFX Stat Lab 10/22/24 14:00 Completed Lipase Stat Lab 10/22/24 14:00 Completed Magnesium Stat Lab 10/22/24 14:00 Completed Procalcitonin Stat Lab 10/22/24 14:00 Completed UA [Urinalysis and Microscopic] Stat Lab 10/22/24 13:48 Completed Critical Care <Theresa Boyd MD - Last Filed: 10/22/24 15:54> Critical Care Time Critical Care Time: No
--- NOTE | 2024-10-22 14:04 | CT_ITS ---
FINAL REPORT TECHNIQUE: After the administration of oral and intravenous contrast, axial images were obtained through the abdomen and pelvis by computed tomography. The study was performed with techniques to keep radiation dose as low as reasonably achievable, (ALARA). Individual dose reduction techniques using automated exposure control or adjustment of mA and/or kV according to the patient's size were employed. CLINICAL HISTORY: Right-sided abdominal pain COMPARISON: None FINDINGS: Abdomen: The lung bases are clear. There is mild diffuse fatty infiltration of the liver. The gallbladder is absent. The spleen, pancreas, adrenals and kidneys appear unremarkable. The aorta is normal in caliber. There is no free fluid or adenopathy. Pelvis: The appendix is unremarkable in appearance. Tubal ligation clips are noted in the left side of the pelvis. The uterus is present. The urinary bladder is unremarkable. There is no free fluid or adenopathy. IMPRESSION: No acute intra-abdominal process. Reviewed, Interpreted and Dictated by Isaac Dawson MD Transcribed by Radha Martinez Authenticated and [facility]
[2024-10-22] MEDS: ONDANSETRON 4MG/2ML VIAL 4 MG IV (14:10)
[2024-10-22] MEDS: KETOROLAC 30MG/ML VIAL 15 MG IV (14:11)
[2024-10-22] MEDS: ACETAMINOPHEN 500MG TAB 1000 MG PO (14:11)
--- NOTE | 2024-10-22 14:11 | PC.NURSE ---
PT IS LAYING IN BED STATES NO COMPLAINTS AT THIS TIME
[2024-10-22] MEDS: IOPAMIDOL-370 (76%);100ML BOTTLE 75 ML IV (14:18)
[2024-10-22] MEDS: SODIUM CHLORIDE 0.9% 10ML SYR (RAD ONLY) 10 ML IV (14:18)
[2024-10-22 14:30] VITALS: BP 144/106; PULSE 66; O2SAT 96
[2024-10-22 14:31] LABS: Basophils # 0.1 K/mm3 (0-0.2); Basophils % 0.7 % (0.1-2.0); Eosinophils # 0.1 K/mm3 (0.0-0.4); Eosinophils % 0.7 % (0.1-12.0); Hematocrit 41.5 % (37.0-47.0); Hemoglobin 13.6 g/dL (12.2-16.2); Lymphocytes # 2.9 K/mm3 (0.7-4.5); Lymphocytes % 37.8 % (10-50); Mean Corpuscular HGB Conc 32.8 g/dL (31.8-35.4); Mean Corpuscular Hemoglobin 30.9 pg (27.0-31.2); Mean Corpuscular Volume 94.3 fl (81-99); Mean Platelet Volume 9.8 fl (7.4-10.4); Monocytes # 0.4 K/mm3 (0.1-1.0); Monocytes % 5.7 % (1.7-9.3); Neutrophils # 4.2 K/mm3 (1.8-7.8); Neutrophils % 54.7 % (37.0-80.0); Platelet Count 210 K/mm3 (142-424); Red Cell Distribution Width 12.9 % (11.5-17.5); White Blood Count 7.6 K/mm3 (4.8-10.8)
[2024-10-22 14:32] LABS: Microscopic, Urine URINE MICROSCOPIC (MICROSCOPIC)
[2024-10-22 14:34] LABS: Appearance,Urine CLEAR (Clear); Bilirubin,Urine Negative (Negative); Blood, Urine Negative (Negative); Color,Urine YELLOW (Yellow); Glucose,Urine (UA) Negative (Negative); Ketones,Urine Negative (Negative); Leukocyte Esterase,Urine Negative (Negative); Nitrate,Urine Negative (Negative); PH,Urine 6.5 (5.0-8.5); Protein,Urine Negative (Negative); Urobilinogen,Urine 0.2 EU/dl (0.2)
[2024-10-22 14:45] LABS: Lipase 177 U/L (23-300); Magnesium 1.8 mg/dl (1.6-2.3)
[2024-10-22 14:46] LABS: Alanine Aminotransferase 25 U/L (12-78); Albumin Level 4.5 g/dl (3.5-5.0); Albumin/Globulin Ratio 1.6 (1.1-1.8); Alkaline Phosphatase 114 U/L (38-126); Aspartate Amino Transferase 29 U/L (14-36); Bilirubin,Total 0.4 mg/dl (0.2-1.3); Blood Urea Nitrogen 9 mg/dl (7-17); Calcium 9.5 mg/dl (8.4-10.2); Carbon Dioxide 28 mmol/L (22.0-30.0); Chloride 103 mmol/L (98-107); Creatinine Clearance Estimated 115 mL/min (50-200); Estimated Glomerular Filt Rate 68 ml/min (>60); GFR (African American) 82 ML/MIN (>60); Globulin 2.9 g/dL (1.3-3.2); Glucose 89 mg/dl (74-100); Sodium 140 mmol/L (136-145); Total Protein,Serum 7.4 g/dl (6.3-8.2)
[2024-10-22 15:00] VITALS: BP 135/99; PULSE 62; O2SAT 94
[2024-10-22 15:01] LABS: Bacteria,Urine 1+ /lpf
[2024-10-22 15:03] LABS: Procalcitonin 0.037 ng/mL (0.0-2.0)
--- NOTE | 2024-10-22 15:27 | PC.NURSE ---
Agnes SYKES is on the phone with lab inquiring about the results of the CBC. He was told that the first time the blood clotted and the second time there was an IT issue.
[2024-10-22 15:30] VITALS: BP 151/100; PULSE 55; O2SAT 97
[2024-10-22 15:30] LABS: HIV Combo NEGATIVE (Negative)
[2024-10-22] MEDS: PANTOPRAZOLE 40MG TABLET 40 MG PO (15:43)
--- NOTE | 2024-10-22 15:44 | PC.NURSE ---
I rounded on the pt. no new complaints at this time. no needs voiced. call cloud in reach.
[2024-10-22 16:12] VITALS: BP 148/90; PULSE 62; RESP 18; TEMP 36.8; O2SAT 98
[2024-10-22 17:51] LABS: Hepatitis C Ab Qual. W/ RFX NEGATIVE (Negative)
== END 2024-10-22 16:15 | disposition home or self-care (01) ==
LOC: UTC 12:00 → ER 13:41
PROVIDERS: Physician Assistant; Emergency Provider Emergency Medicine; PCP Physician Assistant
DX: R10.11 Right upper quadrant pain (principal); R11.0 Nausea; R19.7 Diarrhea, unspecified; F17.210 Nicotine dependence, cigarettes, uncomplicated
CPT/HCPCS: 74177; 80053; 81001; 83690; 83735; 84145; 85025; 86803; 87389; 96374; 96375; 99285; J1885; J2405; Q9967